=== PATIENT | female | born 1990 | race American Indian/Alaskan Native ===

== ENCOUNTER 2018-07-31 13:27 | Emergency (ER) | payer OTHER ==
--- NOTE | 2018-07-31 13:43 | EDM.PDOC ---
ED HPI GENERAL MEDICAL PROBLEM - General Chief Complaint: Lower Extremity Injury/Pain Stated Complaint: work injury Time Seen by Provider: 07/31/18 13:32 - History of Present Illness INITIAL COMMENTS - FREE TEXT/NARRATIVE: HISTORY AND PHYSICAL: History of present illness: Patient 28-year-old female presents 20 40 status post right ankle injury this occurred at work tip pain and swelling since she denies other trauma concern Review of systems: As per history of present illness and below otherwise all systems reviewed and negative. Past medical history: As per history of present illness and as reviewed below otherwise noncontributory. Surgical history: As per history of present illness and as reviewed below otherwise noncontributory. Social history: No reported history of drug or alcohol abuse. Family history: As per history of present illness and as reviewed below otherwise noncontributory. Physical exam: HEENT: Atraumatic, normocephalic, pupils reactive, negative for conjunctival pallor or scleral icterus, mucous membranes moist, throat clear, neck supple, nontender, trachea midline. Lungs: Clear to auscultation, breath sounds equal bilaterally, chest nontender. Heart: S1S2, regular, negative for clicks, rubs, or JVD. Abdomen: Soft, nondistended, nontender. Negative for masses or hepatosplenomegaly. Negative for costovertebral tenderness. Pelvis: Stable nontender. Genitourinary: Deferred. Rectal: Deferred. Extremities: Patient's pain swelling grazed the region of the right lateral malleolus Achilles tendon is intact is no proximal fibular tenderness CMS neurovascular exam is unremarkable Neuro: Awake, alert, oriented. Cranial nerves II through XII unremarkable. Cerebellum unremarkable. Motor and sensory unremarkable throughout. Exam nonfocal. Diagnostics: X-ray of right ankle Therapeutics: Mango wrap/crutches Impression: #1 acute right ankle injury Definitive disposition and diagnosis as appropriate pending reevaluation and review of above. Review of Systems - Review of Systems Review Of Systems: ROS reveals no pertinent complaints other than HPI. ED EXAM, GENERAL - Physical Exam Exam: See Below (See dictation) Course - Orders/Labs/Meds Orders: Active Orders 24 hr Category Date Time Status Ankle Min 3V Rt [CR] Stat Exams 07/31/18 13:39 Ordered Departure - Departure Time of Disposition: 13:41 Disposition: Home, Self-Care 01 Condition: Good Clinical Impression: Ankle injury - Discharge Information Referrals: PCP,Unknown [Primary Care Provider] - Additional Instructions: The following information is given to patients seen in the emergency department who are being discharged to home. This information is to outline your options for follow-up care. We provide all patients seen in our emergency department with a follow-up referral. The need for follow-up, as well as the timing and circumstances, are variable depending upon the specifics of your emergency department visit. If you don't have a primary care physician on staff, we will provide you with a referral. We always advise you to contact your personal physician following an emergency department visit to inform them of the circumstance of the visit and for follow-up with them and/or the need for any referrals to a consulting specialist. The emergency department will also refer you to a specialist when appropriate. This referral assures that you have the opportunity for followup care with a specialist. All of these measure are taken in an effort to provide you with optimal care, which includes your followup. Under all circumstances we always encourage you to contact your private physician who remains a resource for coordinating your care. When calling for followup care, please make the office aware that this follow-up is from your recent emergency room visit. If for any reason you are refused follow-up, please contact the [facility] emergency department at and asked to speak to the emergency department charge nurse. Mango wrap crutches as directed Motrin/Tylenol as directed follow-up occupational medicine as needed as discussed and return as needed as discussed - My Orders Last 24 Hours: My Active Orders 07/31/18 13:39 Ankle Min 3V Rt [CR] Stat - Assessment/Plan Last 24 Hours: My Active Orders 07/31/18 13:39 Ankle Min 3V Rt [CR] Stat
--- NOTE | 2018-07-31 14:10 | CR ---
EXAMINATION: Right ankle HISTORY: Pain COMPARISON: None TECHNIQUE: 3 views FINDINGS/IMPRESSION: There is no acute osseous abnormality, dislocation, or fracture. Bone mineralization, joint spaces, and ankle mortise appear intact. Mild soft tissue swelling is noted overlying the lateral malleolus.
== END 2018-07-31 14:24 | disposition home or self-care (01) ==
LOC: MW.ED 13:27
DX: S99.911A Unspecified injury of right ankle, initial encounter (principal); W17.89XA Other fall from one level to another, initial encounter
CPT/HCPCS: 73610-26-RT; 73610-RT; 99283; 99283-25

== ENCOUNTER 2021-04-12 08:53 | Day surgery (SDC) | payer BC, OTHER ==
[~2021-04-12 08:53] MED LIST: Lactated Ringers 1,000 ML IV SCH
[2021-04-12] MEDS ORDERED: Dexamethasone 4 MG/ML 5 ML MDV ONE (09:14)
[2021-04-12] MEDS ORDERED: fentaNYL 100 MCG/2 ML SDV ONE (09:14)
[2021-04-12] MEDS ORDERED: Ondansetron 4 MG/2 ML SDV ONE (09:14)
[2021-04-12] MEDS ORDERED: Lidocaine 2% 5 ML SDV ONE (09:14)
[2021-04-12] MEDS ORDERED: Midazolam 1 MG/ML 2 ML SDV ONE (09:14)
[2021-04-12] MEDS ORDERED: Propofol 200 MG/20 ML SDV ONE (09:14)
--- NOTE | 2021-04-12 09:41 | PCM.PREANE ---
Preanesthetic Assessment - Procedure Proposed Procedure: Dx Hysteroscopy, fractional D&C, poss polypectomy, poss myomectomy, BXs - Anesthesia/Transfusion/Family Hx Anesthesia History: Prior Anesthesia Without Reaction Family History of Anesthesia Reaction: No Transfusion History: No Prior Transfusion(s) - Review of Systems General: No Symptoms Pulmonary: No Symptoms (Smokes 1/2 PPD, asthma with PRN MDI use. Pt states she hasn't used MDI in a while.) Cardiovascular: No Symptoms Gastrointestinal: No Symptoms (GERD well controlled) Neurological: No Symptoms Other: Reports: None, Diabetes ("Pre-diabetic" on metformin), Liver Problems (Fatty liver) - Physical Assessment NPO Status Date: 04/11/21 NPO Status Time: 21:30 Vital Signs: Last Vital Signs Temp 98.2 F 04/12/21 09:00 Pulse 70 04/12/21 09:00 Resp 15 04/12/21 09:00 BP 120/80 04/12/21 09:00 Pulse Ox 97 04/12/21 09:00 Height: 5 ft 4.5 in Weight: 86.636 kg ASA Class: 2 Mental Status: Alert & Oriented x3 Airway Class: Mallampati = 2 Dentition: Reports: Normal Dentition Thyro-Mental Finger Breadths: 3 Mouth Opening Finger Breadths: 3 ROM/Head Extension: Full Lungs: Clear to Auscultation, Normal Respiratory Effort Cardiovascular: Regular Rate, Regular Rhythm - Lab Values: Laboratory Last Values WBC 10.65 K/uL (4.0-11.0) 04/12/21 08:25 RBC 4.69 M/uL (4.30-5.90) 04/12/21 08:25 Hgb 14.3 g/dL (12.0-16.0) 04/12/21 08:25 Hct 42.2 % (36.0-46.0) 04/12/21 08:25 MCV 90.0 fL (80.0-98.0) 04/12/21 08:25 MCH 30.5 pg (27.0-32.0) 04/12/21 08:25 MCHC 33.9 g/dL (31.0-37.0) 04/12/21 08:25 RDW Std Deviation 44.2 fl (28.0-62.0) 04/12/21 08:25 RDW Coeff of Adolfo 13 % (11.0-15.0) 04/12/21 08:25 Plt Count 210 K/uL (150-400) 04/12/21 08:25 MPV 10.50 fL (7.40-12.00) 04/12/21 08:25 Nucleated RBC % 0.0 /100WBC 04/12/21 08:25 Nucleated RBCs # 0 K/uL 04/12/21 08:25 HCG, Qual NEGATIVE (NEG) 04/12/21 08:25 SARS-CoV-2 RNA ([place]) NEGATIVE (NEGATIVE) 04/12/21 07:50 - Allergies Allergies/Adverse Reactions: Allergies Allergy/AdvReac Type Severity Reaction Status Date / Time amoxicillin Allergy Unknown Cannot Verified 04/06/21 07:45 Remember - Acknowledgements Anesthesia Type Planned: General Anesthesia Pt an Appropriate Candidate for the Planned Anesthesia: Yes Alternatives and Risks of Anesthesia Discussed w Pt/Guardian: Yes Pt/Guardian Understands and Agrees with Anesthesia Plan: Yes PreAnesthesia Questionnaire HEENT History: Reports: Other (See Below) Other HEENT History: wears glasses Cardiovascular History: Reports: None Respiratory History: Reports: Asthma, Other (See Below) Other Respiratory History: have not used inhaler "in years" Gastrointestinal History: Reports: GERD Genitourinary History: Reports: None [employer] History: Reports: Endometriosis, Polycystic Ovaries Musculoskeletal History: Reports: Back Pain, Chronic Neurological History: Reports: None Psychiatric History: Reports: Anxiety, Depression, PTSD Endocrine/Metabolic History: Reports: Diabetes, Type II, Obesity/BMI 30+, Other (See Below) Other Endocrine/Metabolic History: "prediabetic" Hematologic History: Reports: None Immunologic History: Reports: None Oncologic (Cancer) History: Reports: Other (See Below) Other Oncologic History: cervical dysplasia Dermatologic History: Reports: Eczema - Past Surgical History Head Surgeries/Procedures: Reports: None HEENT Surgical History: Reports: None Cardiovascular Surgical History: Reports: None Respiratory Surgical History: Reports: None GI Surgical History: Reports: Appendectomy Female Surgical History: Reports: D&C, LEEP Endocrine Surgical History: Reports: None Neurological Surgical History: Reports: None Musculoskeletal Surgical History: Reports: None Oncologic Surgical History: Reports: Other (See Below) Other Oncologic Surgeries/Procedures: LEEP Dermatological Surgical History: Reports: None - SUBSTANCE USE Tobacco Use Status *Q: Current Every Day Tobacco User Tobacco Use Within Last Twelve Months: Cigarettes - HOME MEDS Home Medications: Home Meds metFORMIN HCl [Metformin HCl ER] 2 tab PO BEDTIME 06/24/20 [History] Omeprazole 20 mg PO DAILY PRN 03/15/21 [History] medroxyPROGESTERone [Provera] 10 mg PO DAILY 03/15/21 [History] Ferrous Sulfate [Iron] 1 tab PO DAILY 04/06/21 [History] - CURRENT (IN HOUSE) MEDS Current Meds: Current Medications Lactated Ringer's (Ringers, Lactated) 1,000 mls @ 166 mls/hr IV ASDIRECTED DAVID Last Admin: 04/12/21 09:07 Dose: 166 mls/hr Documented by: Discontinued Medications Dexamethasone (Dexamethasone 4 Mg/Ml 5 Ml Mdv) Confirm Administered Dose 20 mg .ROUTE .STK-MED ONE Stop: 04/12/21 09:15 Fentanyl (Fentanyl 100 Mcg/2 Ml Sdv) Confirm Administered Dose 200 mcg .ROUTE .STK-MED ONE Stop: 04/12/21 09:15 Lidocaine (Lidocaine 2% 5 Ml Sdv) Confirm Administered Dose 5 ml .ROUTE .STK-MED ONE Stop: 04/12/21 09:15 Midazolam HCl (Midazolam 1 Mg/Ml 2 Ml Sdv) Confirm Administered Dose 2 mg .ROUTE .STK-MED ONE Stop: 04/12/21 09:15 Ondansetron HCl (Ondansetron 4 Mg/2 Ml Sdv) Confirm Administered Dose 4 mg .ROUTE .STK-MED ONE Stop: 04/12/21 09:15 Propofol (Propofol 200 Mg/20 Ml Sdv) Confirm Administered Dose 200 mg .ROUTE .STK-MED ONE Stop: 04/12/21 09:15
[2021-04-12] MEDS ORDERED: Naloxone 0.4 MG/ML SDV IVPUSH PRN (09:43)
[2021-04-12] MEDS ORDERED: Metoclopramide 10 MG/2 ML SDV IVPUSH PRN (09:43)
[2021-04-12] MEDS ORDERED: HYDROmorphone 1 MG/ML Syringe IVPUSH PRN (09:43)
[2021-04-12] MEDS ORDERED: Albuterol 0.083% 2.5 MG/3 ML Neb Soln NEB PRN (09:43)
[2021-04-12] MEDS ORDERED: Ondansetron 4 MG/2 ML SDV IVPUSH PRN (09:43)
[2021-04-12] MEDS ORDERED: fentaNYL 100 MCG/2 ML SDV IVPUSH PRN (09:43)
[2021-04-12] MEDS ORDERED: Ketorolac 30 MG/ML SDV ONE (11:42)
[2021-04-12] MEDS ORDERED: Acetaminophen 500 MG Tab PO PRN (11:43)
--- NOTE | 2021-04-12 11:48 | PCM.OPNOTE ---
- General Post-Op/Procedure Note Date of Surgery/Procedure: 04/12/21 Operative Procedure(s): Hysteroscopy Dilatation and Curettage with Myosure Device Findings: Normal sized anteverted uterus Endometrial cavity with proliferative endometrium Anterior upper endometrium appearing polypoid Fluid deficit 215ml of normal saline Pre Op Diagnosis: 31yo P0 with infertility. Thickened Endometrium Post-Op Diagnosis: Same Anesthesia Technique: General ET Tube Primary Surgeon: Aston Paige Pathology: Endometrial curettings Fluid Replacement, Intraop: 1,100 Output, Urine Amount: 20 EBL in mLs: 3 Complications: None Condition: Good
--- NOTE | 2021-04-12 11:50 | PCM.POSTAN ---
POST ANESTHESIA ASSESSMENT - MENTAL STATUS Mental Status: Alert, Oriented - VITAL SIGNS Vital Signs: Last Vital Signs Temp 98.2 F 04/12/21 09:00 Pulse 85 04/12/21 11:43 Resp 14 04/12/21 11:43 BP 118/68 04/12/21 11:43 Pulse Ox 97 04/12/21 11:43 - RESPIRATORY Respiratory Status: Respiratory Rate WNL, Airway Patent, O2 Saturation Stable - CARDIOVASCULAR CV Status: Pulse Rate WNL, Blood Pressure Stable - GASTROINTESTINAL GI Status: No Symptoms - PAIN Pain Score: 3 - POST OP HYDRATION Hydration Status: Adequate & Stable
--- NOTE | 2021-04-12 13:02 | PCM48HPAN ---
Post Anesthesia Note - EVALUATION WITHIN 48HRS OF ANESTHETIC Vital Signs in Normal Range: Yes Patient Participated in Evaluation: Yes Respiratory Function Stable: Yes Airway Patent: Yes Cardiovascular Function Stable: Yes Hydration Status Stable: Yes Pain Control Satisfactory: Yes Nausea and Vomiting Control Satisfactory: Yes Mental Status Recovered: Yes Vital Signs: Last Vital Signs Temp 98.6 F 04/12/21 12:26 Pulse 89 04/12/21 12:41 Resp 16 04/12/21 12:41 BP 139/74 04/12/21 12:41 Pulse Ox 97 04/12/21 12:41 - COMMENTS/OBSERVATIONS Free Text/Narrative:: Pt doing well post-op. VSS. No apparent anesthetic complications. Dr. Zachary Don
--- NOTE | 2021-04-13 08:05 | OR ---
SURGEON: JOVANY CAVANAUGH DATE OF PROCEDURE: PREOPERATIVE DIAGNOSES: 1. 31-year-old para 0 with infertility. 2. Thickened endometrium. POSTOPERATIVE DIAGNOSES: 1. 31-year-old para 0 with infertility. 2. Thickened endometrium. PROCEDURES: Hysteroscopy, dilation and curettage with MyoSure device. ESTIMATED BLOOD LOSS: Minimal. IV FLUIDS: 1100. FLUID DEFICIT: 215 normal saline. COMPLICATION: None. ANESTHESIA: General. NOTES AND FINDINGS: Normal-size anteverted uterus. Laparoscopy and hysteroscopy showed perforated endometrium with some area of proliferation appearing like a polyp in the anterior wall. Bilateral ostia not able to be visualized due to poor visibility. BRIEF HISTORY: She is 31-year-old, para 0, was undergoing infertility treatment, was sent for hysteroscopy due to thickened endometrium by assistant manager pt. The patient was explained the risks, benefits, and alternatives and she decided to proceed. DESCRIPTION OF PROCEDURE: The patient was taken to the operating room, where general anesthesia was performed without difficulty. She was prepared and draped in a dorsal lithotomy position with Alexander stirrups. An examination under anesthesia revealed a normal- sized anteverted uterus. The patient was then prepared and draped in a normal sterile fashion. A bivalve speculum was placed to expose the cervix. The cervix was grasped with a tenaculum. The uterus was carefully sounded to about 8 cm. The os was sequentially dilated to accommodate the MyoSure hysteroscope. The MyoSure hysteroscope was placed under direct visualization. The uterus was distended with normal saline. The endometrium was noted to be proliferative with some polypoid sloughiness around the anterior wall. The MyoSure was then used to remove the sloughiness of the anterior, and also do some curetting, after which the MyoSure was removed. A sharp curette was then placed in and all the johnson were curetted and was sent for pathology. The specimen was sent for pathology. The patient tolerated the procedure well. The instrument and pad counts were correct x2. Patient to be awakened from general anesthesia and taken to the recovery room. The patient will go home after recovering from anesthesia and meeting all the criteria for discharge. She will follow up in 2 weeks. WADE / AKIL /[id number]
== END 2021-04-12 13:15 | disposition home or self-care (01) ==
LOC: MW.SDS 08:53
PROVIDERS: ATTEND Obstetrics & Gynecology
DX: N85.00 Endometrial hyperplasia, unspecified (principal); N97.9 Female infertility, unspecified; J45.909 Unspecified asthma, uncomplicated; F17.210 Nicotine dependence, cigarettes, uncomplicated; E11.9 Type 2 diabetes mellitus without complications; E66.9 Obesity, unspecified; Z01.812 Encounter for preprocedural laboratory examination; Z20.822 Contact with and (suspected) exposure to COVID-19; Z79.899 Other long term (current) drug therapy; Z98.890 Other specified postprocedural states; Z88.1 Allergy status to other antibiotic agents; Z68.32 Body mass index [BMI] 32.0-32.9, adult
CPT/HCPCS: 36415; 58558; 84703; 85027; 87635; J1100; J2250; J2704; J7120; 00952; J2405; J3010; U0002

== ENCOUNTER 2021-07-13 11:33 | Day surgery (SDC) | payer BC, OTHER ==
[~2021-07-13 11:33] MED LIST changes: +Albuterol 0.083% 2.5 MG/3 ML Neb Soln NEB PRN; +HYDROmorphone 1 MG/ML Syringe IVPUSH PRN; +Metoclopramide 10 MG/2 ML SDV IVPUSH PRN; +Naloxone 0.4 MG/ML SDV IVPUSH PRN; +Ondansetron 4 MG/2 ML SDV IVPUSH PRN; +Sodium Chloride 0.9% 10 ML Syringe FLUSH PRN; +Sodium Chloride 0.9% 2.5 ML Syringe FLUSH PRN; +Sodium Chloride 0.9% 20 ML SDV IV PRN; +ceFAZolin 2 GM in Premix Bag 1 BAG IV ONE; +fentaNYL 100 MCG/2 ML SDV IVPUSH PRN
[2021-07-13] MEDS ORDERED: fentaNYL 100 MCG/2 ML SDV ONE (13:22)
[2021-07-13] MEDS ORDERED: Midazolam 1 MG/ML 2 ML SDV ONE (13:22)
[2021-07-13] MEDS ORDERED: Propofol 200 MG/20 ML SDV ONE ×2 (13:22→15:05)
[2021-07-13] MEDS ORDERED: Dexamethasone 4 MG/ML 5 ML MDV ONE (13:23)
[2021-07-13] MEDS ORDERED: Rocuronium Bromide 50 MG/5 ML Syringe ONE (13:23)
[2021-07-13] MEDS ORDERED: Lidocaine 2% 5 ML SDV ONE (13:23)
[2021-07-13] MEDS ORDERED: Esmolol 100 MG/10 ML SDV ONE (13:23)
[2021-07-13] MEDS ORDERED: Scopolamine 1.5 MG Transdermal Patch TRDERM PRN (13:38)
[2021-07-13] MEDS ORDERED: Bupivacaine 0.5% 30 ML SDV ONE (13:48)
[2021-07-13] MEDS ORDERED: Octyl 2-Cyanoacrylate 1 Tube ONE (13:48)
[2021-07-13] MEDS ORDERED: Clindamycin Phosphate in D5W 50 ML ONE (14:19)
[2021-07-13] MEDS ORDERED: Ondansetron 4 MG/2 ML SDV ONE (15:11)
[2021-07-13] MEDS ORDERED: Sugammadex Sodium 200 MG/2 ML VIAL ONE (15:11)
[2021-07-13] MEDS ORDERED: Ketorolac 30 MG/ML SDV ONE (15:11)
== END 2021-07-13 18:00 | disposition home or self-care (01) ==
LOC: MW.SDS 11:33
PROVIDERS: ATTEND Surgery
DX: K80.10 Calculus of gallbladder with chronic cholecystitis without obstruction (principal); K76.0 Fatty (change of) liver, not elsewhere classified; F17.200 Nicotine dependence, unspecified, uncomplicated; J45.909 Unspecified asthma, uncomplicated; E11.9 Type 2 diabetes mellitus without complications; E66.9 Obesity, unspecified; Z90.49 Acquired absence of other specified parts of digestive tract; Z98.890 Other specified postprocedural states; Z88.0 Allergy status to penicillin; Z79.899 Other long term (current) drug therapy
CPT/HCPCS: 47379; 47562; A9270; J0131; J1100; J1885; J2250; J2405; J2704; J3010; J3490; J7120; 00790

== ENCOUNTER 2022-02-22 06:00 | Day surgery (SDC) | payer BC, OTHER ==
[2022-02-22] MEDS ORDERED: fentaNYL 250 MCG/5 ML SDV ONE (07:34)
[2022-02-22] MEDS ORDERED: Propofol 200 MG/20 ML SDV ONE ×4 (07:34→10:39)
[2022-02-22] MEDS ORDERED: Methylene Blue 50 MG/10 ML Ampule ONE (07:42)
[2022-02-22] MEDS ORDERED: Bupivacaine 0.25% 30 ML SDV ONE (07:42)
[2022-02-22] MEDS ORDERED: Ropivacaine 0.5% 5 MG/ML 30 ML SDV ONE (07:48)
[2022-02-22] MEDS ORDERED: Scopolamine 1.5 MG Transdermal Patch ONE (07:51)
[2022-02-22] MEDS ORDERED: Famotidine 20 MG/2 ML SDV ONE (08:07)
[2022-02-22] MEDS ORDERED: Lactated Ringers 1,000 ML IV ONE (08:30)
[2022-02-22] MEDS ORDERED: Albuterol 8 GM Inhaler ONE (08:30)
[2022-02-22] MEDS ORDERED: Midazolam 1 MG/ML 2 ML SDV ONE (08:46)
[2022-02-22] MEDS ORDERED: Glycopyrrolate 0.2 MG/ML SDV ONE (09:41)
[2022-02-22] MEDS ORDERED: Dexamethasone 4 MG/ML 5 ML MDV ONE (09:41)
[2022-02-22] MEDS ORDERED: Rocuronium Bromide 50 MG/5 ML Syringe ONE (09:41)
[2022-02-22] MEDS ORDERED: Sugammadex Sodium 200 MG/2 ML VIAL ONE (09:41)
[2022-02-22] MEDS ORDERED: Ondansetron 4 MG/2 ML SDV ONE (09:41)
== END 2022-02-22 12:30 ==
LOC: MW.SDS 06:00
PROVIDERS: ATTEND Obstetrics & Gynecology
DX: N85.01 Benign endometrial hyperplasia (principal); N93.9 Abnormal uterine and vaginal bleeding, unspecified; F32.A Depression, unspecified; J45.909 Unspecified asthma, uncomplicated; Z88.0 Allergy status to penicillin; Z79.899 Other long term (current) drug therapy; Z79.84 Long term (current) use of oral hypoglycemic drugs; Z98.890 Other specified postprocedural states
CPT/HCPCS: 58350; 58558; A9270; J0131; J1100; J2250; J2405; J2704; J2795; J3010; J3490; J7030; J7120

== ENCOUNTER 2022-04-17 08:21 | Emergency (ER) | payer BC, OTHER ==
[2022-04-17 09:26] LABS: CORONAVIRUS COVID-19 NAA NEGATIVE (NEGATIVE); INFLUENZA A NAA NEGATIVE (NEGATIVE); INFLUENZA B NAA NEGATIVE (NEGATIVE); RESPIRATORY SYNCYTIAL VIR NAA NEGATIVE (NEGATIVE)
== END 2022-04-17 09:27 | disposition left against medical advice (07) ==
LOC: MW.ED 08:21
DX: K52.9 Noninfective gastroenteritis and colitis, unspecified (principal); E11.9 Type 2 diabetes mellitus without complications; F17.210 Nicotine dependence, cigarettes, uncomplicated; E66.9 Obesity, unspecified; Z68.31 Body mass index [BMI] 31.0-31.9, adult; Z88.0 Allergy status to penicillin; Z90.49 Acquired absence of other specified parts of digestive tract; Z20.822 Contact with and (suspected) exposure to COVID-19
CPT/HCPCS: 0241U; 99284

== ENCOUNTER 2022-06-28 09:04 | Emergency (ER) | payer BC, OTHER ==
[2022-06-28] MEDS ORDERED: Acetaminophen 500 MG Tab PO ONE (09:15)
[2022-06-28] MEDS ORDERED: Sodium Chloride 0.9% 1,000 ML IV ONE (09:15)
[2022-06-28 10:35] LABS: CARBON DIOXIDE,CO2 24.1 mmol/L (21.0-32.0); POTASSIUM,K 4.1 mmol/L (3.5-5.1)
== END 2022-06-28 12:17 | disposition home or self-care (01) ==
LOC: MW.ED 09:04
DX: O20.9 Hemorrhage in early pregnancy, unspecified (principal); O24.419 Gestational diabetes mellitus in pregnancy, unspecified control; O99.281 Endocrine, nutritional and metabolic diseases complicating pregnancy, first trimester; E66.9 Obesity, unspecified; Z88.0 Allergy status to penicillin; Z3A.01 Less than 8 weeks gestation of pregnancy; Z86.16 Personal history of COVID-19
CPT/HCPCS: 36415; 76801; 80053; 81001; 84144; 84702; 85025; 86900; 86901; 96360; 99284; A9270; J7030; 99283

== ENCOUNTER 2022-10-26 09:17 | Emergency (ER) | payer BC, OTHER ==
[2022-10-26 10:38] LABS: HEMATOCRIT 41.2 % (36.0-46.0); HEMOGLOBIN 13.7 g/dL (12.0-16.0); MEAN CORPUSCULAR HEMOGLOBIN 28.4 pg (27.0-32.0); MEAN CORPUSCULAR HGB CONC 33.3 g/dL (31.0-37.0); MEAN CORPUSCULAR VOLUME 85.5 fL (80.0-98.0); NRBC ABSOLUTE 0 K/uL; PLATELET COUNT,PLT 280 K/uL (150-400); RED BLOOD CELL COUNT 4.82 M/uL (4.30-5.90); WHITE BLOOD CELL COUNT,WBC 18.49 K/uL (4.0-11.0)
[2022-10-26 10:56] LABS: BILIRUBIN,URINE NEGATIVE (NEGATIVE); COLOR,URINE RED; GLUCOSE,URINE NEGATIVE (NEGATIVE); KETONES,URINE NEGATIVE (NEGATIVE); LEUKOCYTE ESTERASE,URINE TRACE (NEGATIVE); NITRITE,URINE NEGATIVE (NEGATIVE); OCCULT BLOOD,URINE LARGE (NEGATIVE); PROTEIN,URINE 100 mg/dL (NEGATIVE); UROBILINOGEN,URINE 0.2 EU/dL (<2.0)
[2022-10-26 11:04] LABS: APPEARANCE,URINE BLOODY
[2022-10-26 11:05] LABS: BACTERIA,URINE RARE (NEGATIVE); EPITHELIAL CELLS,URINE RARE (NONE-FEW); RBC,URINE TOO NUMEROUS TO CT (0-2/HPF); WBC,URINE 0-2 (0-5/HPF)
[2022-10-26 11:22] LABS: A/G RATIO 0.8 (0.9-1.6); ALBUMIN 3.5 g/dL (3.4-5.0); BILIRUBIN TOTAL 0.3 mg/dL (0.2-1.0); CALCIUM 8.9 mg/dL (8.5-10.1); CARBON DIOXIDE,CO2 20.5 mmol/L (21.0-32.0); CREATININE 0.7 mg/dL (0.6-1.0); EST CRCL DRUG DOSING (CG) 98.71 mL/min; POTASSIUM,K 4.3 mmol/L (3.5-5.1); PROTEIN TOTAL,TP 7.7 g/dL (6.4-8.2)
[2022-10-26] MEDS ORDERED: Acetaminophen 500 MG Tab PO ONE (12:07)
[2022-10-26 12:18] LABS: BAND ABSOLUTE MAN 0.2; BAND PERCENT MAN 1 %; EOSINOPHILS ABSOLUTE MAN 0.2 (0.0-0.7); EOSINOPHILS PERCENT MAN 1 % (0.0-7.0); LYMPHOCYTES ABSOLUTE MAN 3.9 (0.6-2.4); LYMPHOCYTES PERCENT MAN 21 % (16.0-40.0); METAMYELOCYTE ABSOLUTE MAN 0.4; METAMYELOCYTE PERCENT MAN 2 %; MONOCYTES ABSOLUTE MAN 0.4 (0.0-0.8); MONOCYTES PERCENT MAN 2 % (0.0-15.0); SEG NEUTROPHILS ABSOLUTE MAN 13.5 (1.4-5.7); SEG NEUTROPHILS PERCENT MAN 73 % (48.0-80.0)
== END 2022-10-26 13:43 | disposition home or self-care (01) ==
LOC: MW.ED 09:17
DX: O20.0 Threatened abortion (principal); O99.511 Diseases of the respiratory system complicating pregnancy, first trimester; J45.909 Unspecified asthma, uncomplicated; O24.111 Pre-existing type 2 diabetes mellitus, in pregnancy, first trimester; O99.211 Obesity complicating pregnancy, first trimester; Z86.16 Personal history of COVID-19; Z88.0 Allergy status to penicillin; Z3A.01 Less than 8 weeks gestation of pregnancy
CPT/HCPCS: 36415; 76817; 80053; 81001; 84702; 85025; 86900; 86901; 99284; A9270; 99283